=== PATIENT | male | born 1970 | race Caucasian/White ===

== ENCOUNTER 2022-05-29 01:39 | Emergency (ER) | payer SELFPAY ==
[2022-05-29 01:44] VITALS: BP 124/78; PULSE 84; RESP 18; TEMP 36.4; O2SAT 99; BMI 23.1
[2022-05-29 01:52] VITALS: TEMP 36.4
[2022-05-29] MEDS: KETOROLAC 30 MG/ML inj IVP (01:52)
[2022-05-29] MEDS: HYDROmorphone 0.5 mg/0.5 ml inj IVP (01:59)
[2022-05-29 02:00] VITALS: O2SAT 95
[2022-05-29 02:01] LABS: Lactate* 1.5 mmol/L (0.5-1.9)
--- NOTE | 2022-05-29 02:01 | ED_ITS ---
HPI - Abdominal Pain General Date Seen: 05/29/22 Chief Complaint: Flank Pain Stated Complaint: Left flank pain, chills, vomiting Time Seen by Provider: 05/29/22 01:45 Source: patient and family Mode of arrival: ambulatory Limitations: no limitations History of Present Illness HPI narrative: Patient is a very nice 51-year-old gentleman who presents here with his with a history of acute onset at 10:00 p.m. of left flank discomfort with radiation to his suprapubic area. Vomiting, nausea, and pain in spasmodic waves. Also some chills associated with this, he has not noted any blood in his urine, he has had no diarrhea, heme thinks this is similar to episodes approximately 4 years ago when he had kidney stones. MD elicited complaint: abdominal pain and flank pain Pertinent past history: kidney stones Onset (ago): hour(s) (4) Location: LUQ and suprapubic Severity: severe Migration to: no migration Exacerbating factors: vomiting and movement Relieving factors: medication Associated symptoms: nausea, vomiting and chills Treatments prior to arrival: other (Tried to take 2 oxycodone but vomited this up) Related Data Home Medications Medication Instructions Recorded Confirmed No Known Home Medications 05/29/22 05/29/22 Allergies Allergy/AdvReac Type Severity Reaction Status Date / Time No Known Drug Allergies Allergy Verified 05/29/22 03:28 Review of Systems Status of ROS Reports: 10 or more systems reviewed and unremarkable except as noted in History and below [facility] Medical History (Updated 05/29/22 @ 03:39 by Kodak Dorado MD) Hernia Kidney stones Surgical History (Updated 05/29/22 @ 02:22 by Kelvin Calle RN) History of arthrodesis History of arthroscopy of right shoulder History of bilateral inguinal hernia repair History of repair of anterior cruciate ligament of left knee History of umbilical hernia repair History of vasectomy Status post ORIF of fracture of ankle Social History Smoking Status: Never smoker Do you use any of these nicotine containing products: None Second hand tobacco smoke exposure: Yes How often do you have a drink containing alcohol: never How often do you have six or more drinks on one occasion: Never AUDIT-C Alcohol total score: 0 Non-prescribed substance use: denies use Exam Narrative: Exam Narrative: Patient initially was in quite a bit of distress, bent over, retching, we did give him medications and by the time I see him he is much more comfortable laying in the bed. Mild left-sided flank discomfort, scaphoid abdomen, with no really tenderness on palpation. There is no organomegaly noted. He has normal testicles, no hernias, chest is good air entry heart sounds are normal, head eyes ears nose and throat reveal no acute abnormalities. No CVA tenderness is noted. Const: Vital Signs, click to edit/add: Vital Signs - 24 hr 05/29/22 01:44 05/29/22 01:52 05/29/22 02:40 Temperature 97.6 F 97.6 F 97.6 F Pulse Rate [Right Pulse Oximeter] 84 Respiratory Rate 18 Blood Pressure [Ri ght Upper Arm] 124/78 Pulse Oximetry 99 Oxygen Delivery Me thod Room Air Oxygen Flow Rate 05/29/22 02:00 Temperature Pulse Rate [Right Pulse Oximeter] Respiratory Rate Blood Pressure [Ri ght Upper Arm] Pulse Oximetry 95 Oxygen Delivery Me thod Nasal Cannula Oxygen Flow Rate 2 Documenting provider has reviewed patient's vital signs: yes Course Course Hospital Course: Patient's pain markedly improved, it is currently 0/10. He is resting comfortably. His CT scan does show left-sided stone, at the UVJ. There are some bacteria and white cells in his urine, so I think it would be a good idea, for him to take an antibiotic. I think it is likely not going to grow anything. But we should err on the side of safety here. Vital Signs Vital signs: Initial Vital Signs Temperature 97.6 F 05/29/22 01:44 Temperature Source Temporal Artery Scan 05/29/22 01:44 Pulse Rate 84 05/29/22 01:44 Respiratory Rate 18 05/29/22 01:44 Blood Pressure 124/78 05/29/22 01:44 Blood Pressure Mean 93 05/29/22 01:44 Blood Pressure Position Sitting 05/29/22 01:44 Pulse Oximetry 99 05/29/22 01:44 Oxygen Delivery Method 05/29/22 01:44 Vital Signs Temperature 97.6 F 05/29/22 01:44 Pulse Rate 84 05/29/22 01:44 Respiratory Rate 18 05/29/22 01:44 Blood Pressure 124/78 05/29/22 01:44 Pulse Oximetry 99 05/29/22 01:44 Oxygen Delivery Method 05/29/22 01:44 Temperature 97.6 F 05/29/22 02:40 Pulse Rate 84 05/29/22 01:44 Respiratory Rate 18 05/29/22 01:44 Blood Pressure 124/78 05/29/22 01:44 Pulse Oximetry 95 05/29/22 02:00 Oxygen Delivery Method 05/29/22 02:00 Oxygen Flow Rate 2 05/29/22 02:00 MDM - Abdominal Pain MDM Narrative Medical decision making narrative: During this evaluation of this patient I considered multiple differential diagnosis is which included the life-threatening such as appendicitis, aortic aneurysm, mesenteric ischemia, bowel perforation, volvulus, and bowel obstruction. Other differential diagnosis is include but are not limited to cholecystitis, pancreatitis, hepatitis, gastritis, GERD, diverticulitis, peptic ulcer disease, pyelonephritis/UTI, renal colic/stone, testicular torsion as well as other acute scrotal processes, inflammatory bowel disease, as well as other etiologies Medical Records Attestation: I reviewed the patient's medical records. Medical records narrative: I reviewed his medical records from [facility] everywhere, multiple surgeries are noted at [facility] Orthopedics, but he does have history of kidney stones as noted in his chart from Urology. Lab Data Labs: Lab Results 05/29/22 05/29/22 05/29/22 Range/Units 01:45 01:45 01:45 WBC 9.12 (4.50-11.00) K/uL RBC 5.14 (4.30-5.90) m/uL Hgb 15.6 (13.5-17.5) gm/dL Hct 45.6 (37.0-53.0) % MCV 89 (80-100) fL MCH 30 (26-34) pg MCHC 34 (32-36) gm/dL RDW Coeff of Linda 12.0 (11.5-15.5) % Plt Count 250 (140-440) K/uL Neut % (Auto) 70.1 (42.0-72.0) % Lymph % (Auto) 21.4 (20-44) % Weston % (Auto) 6.7 (0.0-11.0) % Eos % (Auto) 1.3 (0.0-7.0) % Baso % (Auto) 0.4 (0.0-3.0) % Neut # (Auto) 6.39 (1.7-7.0) K/uL Lymph # (Auto) 1.95 (0.90-2.90) K/uL Weston # (Auto) 0.60 (0.00-0.90) K/UL Eos # (Auto) 0.12 (0.00-0.50) K/uL Baso # (Auto) 0.04 (0.00-0.30) K/uL Abs Immat Gran (auto) 0.01 (0.00-0.30) K/uL Sodium 139 (135-149) mmol/L Potassium 4.2 (3.6-5.1) mmol/L Chloride 104 (96-114) mmol/L Carbon Dioxide 26 (20-32) mmol/L BUN 22 (7-30) mg/dL Creatinine 1.2 (0.5-1.5) mg/dL Estimated Creat Clear 83.16 Estimated GFR 73 ml/min Glucose 124 H (60-115) mg/dL Lactate 1.5 (0.5-1.9) mmol/L Calcium 9.1 (8.4-10.6) mg/dL Total Bilirubin 0.5 (0.1-1.5) mg/dL Direct Bilirubin 0.3 (0.0-0.5) mg/dL AST 38 H (12-35) U/L ALT 24 (4-50) U/L Alkaline Phosphatase 82 (40-150) U/L Total Protein 7.4 (6.0-8.3) g/dL Albumin 4.4 (3.3-5.0) g/dL Lipase 74 (23-300) U/L Urine Color (Yellow) Urine Appearance (Clear) Urine pH (5.0-8.5) Ur Specific [place] (1.000-1.030) Urine Protein (Negative) Urine Glucose (UA) (Negative) Urine Ketones (Negative) Urine Blood (Negative) Urine Nitrite (Negative) Urine Bilirubin (Negative) Urine Urobilinogen (0.2-1.0) Ur Leukocyte Esterase (Negative) Urine RBC (0-2) Urine WBC (0-5) Ur Squamous Epith Cells (None-Few) Urine Bacteria (None) Urine Mucus (None) 08/29/22 Range/Units 03:00 WBC (4.50-11.00) K/uL RBC (4.30-5.90) m/uL Hgb (13.5-17.5) gm/dL Hct (37.0-53.0) % MCV (80-100) fL MCH (26-34) pg MCHC (32-36) gm/dL RDW Coeff of Linda (11.5-15.5) % Plt Count (140-440) K/uL Neut % (Auto) (42.0-72.0) % Lymph % (Auto) (20-44) % Weston % (Auto) (0.0-11.0) % Eos % (Auto) (0.0-7.0) % Baso % (Auto) (0.0-3.0) % Neut # (Auto) (1.7-7.0) K/uL Lymph # (Auto) (0.90-2.90) K/uL Weston # (Auto) (0.00-0.90) K/UL Eos # (Auto) (0.00-0.50) K/uL Baso # (Auto) (0.00-0.30) K/uL Abs Immat Gran (auto) (0.00-0.30) K/uL Sodium (135-149) mmol/L Potassium (3.6-5.1) mmol/L Chloride (96-114) mmol/L Carbon Dioxide (20-32) mmol/L BUN (7-30) mg/dL Creatinine (0.5-1.5) mg/dL Estimated Creat Clear Estimated GFR ml/min Glucose (60-115) mg/dL Lactate (0.5-1.9) mmol/L Calcium (8.4-10.6) mg/dL Total Bilirubin (0.1-1.5) mg/dL Direct Bilirubin (0.0-0.5) mg/dL AST (12-35) U/L ALT (4-50) U/L Alkaline Phosphatase (40-150) U/L Total Protein (6.0-8.3) g/dL Albumin (3.3-5.0) g/dL Lipase (23-300) U/L Urine Color Yellow (Yellow) Urine Appearance Cloudy A (Clear) Urine pH 6.0 (5.0-8.5) Ur Specific [place] >= 1.030 (1.000-1.030) Urine Protein 2+ A (Negative) Urine Glucose (UA) Negative (Negative) Urine Ketones Trace A (Negative) Urine Blood 3+ A (Negative) Urine Nitrite Negative (Negative) Urine Bilirubin 1+ A (Negative) Urine Urobilinogen 0.2 (0.2-1.0) Ur Leukocyte Esterase Negative (Negative) Urine RBC 0-2 (0-2) Urine WBC 10-25 A (0-5) Ur Squamous Epith Cells None (None-Few) Urine Bacteria Moderate A (None) Urine Mucus Many A (None) Imaging Data CT scan - abdomen: Attestation: I have reviewed the pertinent imaging results. My impression: Left-sided hydronephrosis with 7 mm stone at the UVJ Radiologist's impression: Patient: ANITA MARTIN Facility:?[facility] Patient ID:?[id number] Site Patient ID:?[id number]. Site :?[id number] Study:?CT Abdomen/Pelvis without contrast stone study-05/29/2022 2:52:54 AM Ordering Physician:Eduar Candelario Final Report: INDICATION: Left-sided abdominal pain. COMPARISON: CT of the abdomen and pelvis without contrast from 02/24/2010 TECHNIQUE: CT examination of the abdomen and pelvis was performed without contrast enhancement using 3 mm thick axial sections from the lung bases through the pubic symphysis. Oral contrast was not administered. Please note that all CT scans at this facility use dose modulation, iterative reconstruction, and/or weight-based dosing when appropriate to reduce radiation dose to as low as reasonably achievable. FINDINGS: There is new moderate left hydronephrosis and moderate left hydroureter extending to a new 7 millimeter UVJ calculus. There is new mild nonobstructive left nephrolithiasis, with 2 calculi in the lower pole measuring 4 and 5 millimeters. On the right, there is no sign of urinary system obstruction or calculi. The liver, pancreas, and adrenals are normal in appearance. Incidental note is made of stable small calcified splenic granulomas in the otherwise normal spleen. The gallbladder is normal in appearance. The abdominal aorta is normal in caliber with no sign of dilatation. There is no sign of retroperitoneal mass or adenopathy. The stomach, loops of small bowel, and colon in the abdomen are normal in appearance. In the pelvis, the appendix is nonvisualized, but there is no sign of an inflammatory process in the area of the appendix. There is new moderate sigmoid diverticulosis without evidence of diverticulitis. The loops of small bowel and rectum in the pelvis are otherwise normal in appearance. The prostate has increased in size and is now moderately enlarged. It is otherwise normal in appearance. The urinary bladder is now seen to contain a small 2 millimeter calculus posteriorly to the left. There is no sign of pelvic or inguinal mass or adenopathy. There is no sign of free air or free fluid in the abdomen or pelvis. The lung bases are clear. There is stable mild anterior wedging of the T11-L1 vertebral bodies. There is minimal posterior subluxation of L1 on L2. There is stable prominent L4-5 disc degenerative disease. There is stable mild scoliosis of the lumbar spine convex towards the left. IMPRESSION: New moderate left hydronephrosis and moderate left hydroureter extending to a [address] of the abdomen shows new mild nonobstructive left nephrolithiasis. CT of the pelvis shows new moderate sigmoid diverticulosis with no sign of diverticulitis. Please note that all CT scans at this facility use dose modulation, iterative reconstruction, and/or weight-based dosing when appropriate to reduce radiation dose to as low as reasonably achievable. Dictated by Rayray Montalvo MD @ 05/29/2022 3:31:39 AM (Electronic Signature) Discharge Plan Discharge Clinical Impression: Increased nausea and vomiting, Renal colic on left side, Acute UTI (urinary tract infection) Patient Disposition: Home w/ Parent or Adult Condition: Improved Instructions: Renal Colic (ED), Acute Abdominal Pain (ED), Urinary Tract Infection in Men (ED) Additional Instructions: Home rest fluids, ibuprofen 800 mg p.o. t.i.d. for the next 3 days. Percocet for breakthrough pain, Zofran for nausea vomiting, I think he will pass this sto ne, without an issue. As it has already gone through 2 of the 3 [place] so to speak. He does have potential another visit to the ER with a stone in his left kidney, he may want a follow-up with urology get their opinion on this. Increasing fevers chills sweats or vomiting he should follow up at once. Follow Up/Referrals: Juaquin Bryson MD [Primary Care Provider] - Stand Alone Forms: [employer] Info Instructions
[2022-05-29 02:04] LABS: Basophils Absolute Auto 0.04 K/uL (0.00-0.30); Basophils Percent Auto 0.4 % (0.0-3.0); Eosinophils Absolute Auto 0.12 K/uL (0.00-0.50); Eosinophils Percent Auto 1.3 % (0.0-7.0); Hematocrit 45.6 % (37.0-53.0); Hemoglobin* 15.6 gm/dL (13.5-17.5); Immature Granulocytes Abs Auto 0.01 K/uL (0.00-0.30); Lymphocytes Absolute Auto 1.95 K/uL (0.90-2.90); Lymphocytes Percent Auto 21.4 % (20-44); Mean Corpuscular HGB Conc 34 gm/dL (32-36); Mean Corpuscular Hemoglobin 30 pg (26-34); Mean Corpuscular Volume 89 fL (80-100); Monocytes Percent Auto 6.7 % (0.0-11.0); Neutrophils Absolute Auto 6.39 K/uL (1.7-7.0); Neutrophils Percent Auto 70.1 % (42.0-72.0); Platelet Count* 250 K/uL (140-440); Red Blood Count 5.14 m/uL (4.30-5.90); Slide Review Reflex No; White Blood Count* 9.12 K/uL (4.50-11.00)
[2022-05-29] MEDS: LORazepam 2 MG/ML inj 0.5 MG IVP (02:10)
[2022-05-29] MEDS: ONDANSETRON 2 MG/ML inj 4 MG IVP (02:12)
[2022-05-29 02:15] LABS: Albumin* 4.4 g/dL (3.3-5.0)
[2022-05-29 02:16] LABS: Chloride* 104 mmol/L (96-114); Potassium* 4.2 mmol/L (3.6-5.1); Sodium* 139 mmol/L (135-149)
--- NOTE | 2022-05-29 02:16 | CRLHL7_ITS ---
For Patients: As a result of the 21st Century Cures Act, medical imaging exams and procedure reports are released immediately into your electronic medical record. You may view this report before your referring provider. If you have questions, please contact your health care provider. INDICATION: Left-sided abdominal pain. COMPARISON: CT of the abdomen and pelvis without contrast from 02/24/2010 TECHNIQUE: CT examination of the abdomen and pelvis was performed without contrast enhancement using 3 mm thick axial sections from the lung bases through the pubic symphysis. Oral contrast was not administered. Please note that all CT scans at this facility use dose modulation, iterative reconstruction, and/or weight-based dosing when appropriate to reduce radiation dose to as low as reasonably achievable. FINDINGS: There is new moderate left hydronephrosis and moderate left hydroureter extending to a new 7 millimeter UVJ calculus. There is new mild nonobstructive left nephrolithiasis, with 2 calculi in the lower pole measuring 4 and 5 millimeters. On the right, there is no sign of urinary system obstruction or calculi. The liver, pancreas, and adrenals are normal in appearance. Incidental note is made of stable small calcified splenic granulomas in the otherwise normal spleen. The gallbladder is normal in appearance. The abdominal aorta is normal in caliber with no sign of dilatation. There is no sign of retroperitoneal mass or adenopathy. The stomach, loops of small bowel, and colon in the abdomen are normal in appearance. In the pelvis, the appendix is nonvisualized, but there is no sign of an inflammatory process in the area of the appendix. There is new moderate sigmoid diverticulosis without evidence of diverticulitis. The loops of small bowel and rectum in the pelvis are otherwise normal in appearance. The prostate has increased in size and is now moderately enlarged. It is otherwise normal in appearance. The urinary bladder is now seen to contain a small 2 millimeter calculus posteriorly to the left. There is no sign of pelvic or inguinal mass or adenopathy. There is no sign of free air or free fluid in the abdomen or pelvis. The lung bases are clear. There is stable mild anterior wedging of the T11-L1 vertebral bodies. There is minimal posterior subluxation of L1 on L2. There is stable prominent L4-5 disc degenerative disease. There is stable mild scoliosis of the lumbar spine convex towards the left. IMPRESSION: New moderate left hydronephrosis and moderate left hydroureter extending to a [address] of the abdomen shows new mild nonobstructive left nephrolithiasis. CT of the pelvis shows new moderate sigmoid diverticulosis with no sign of diverticulitis. Please note that all CT scans at this facility use dose modulation, iterative reconstruction, and/or weight-based dosing when appropriate to reduce radiation dose to as low as reasonably achievable. Dictated by Rayray Montalvo MD @ 05/29/2022 3:31:39 AM (Electronically Signed)
[2022-05-29 02:18] LABS: Aspartate Amino Transferase* 38 U/L (12-35); Bilirubin Direct* 0.3 mg/dL (0.0-0.5); Bilirubin Total* 0.5 mg/dL (0.1-1.5); Blood Urea Nitrogen* 22 mg/dL (7-30); Carbon Dioxide* 26 mmol/L (20-32); Creatinine* 1.2 mg/dL (0.5-1.5); Est. Creatinine Clearance* 83.16; Estimated Glomerular Filt Rate 73 ml/min; Total Protein* 7.4 g/dL (6.0-8.3)
[2022-05-29 02:19] LABS: Alanine Aminotransferase* 24 U/L (4-50); Alkaline Phosphatase* 82 U/L (40-150); Calcium* 9.1 mg/dL (8.4-10.6); Glucose* 124 mg/dL (60-115); Lipase* 74 U/L (23-300)
[2022-05-29 02:40] VITALS: TEMP 36.4
[2022-05-29 03:16] LABS: Appearance Urine Cloudy (Clear); Bilirubin Urine 1+ (Negative); Blood Urine 3+ (Negative); Color Urine Yellow (Yellow); Glucose Urine Negative (Negative); Ketones Urine Trace (Negative); Leukocyte Esterase Urine Negative (Negative); Nitrite Urine Negative (Negative); Protein Urine 2+ (Negative); Specific Gravity Urine >= 1.030 (1.000-1.030); Urobilinogen Urine 0.2 (0.2-1.0)
[2022-05-29 03:25] LABS: RBC Urine 0-2 (0-2)
[2022-05-29 03:26] LABS: Bacteria Urine Moderate; Mucus Urine Many
[2022-05-29 03:52] VITALS: BP 115/78; PULSE 79; RESP 18; TEMP 36.4; O2SAT 95
[2022-05-29 03:55] VITALS: BP 115/78; PULSE 68; RESP 16; TEMP 36.4
== END 2022-05-29 03:56 | disposition home or self-care (01) ==
PROVIDERS: Emergency Provider Family Medicine; PCP Family Medicine
DX: R11.2 Nausea with vomiting, unspecified (principal); N23 Unspecified renal colic; N39.0 Urinary tract infection, site not specified
CPT/HCPCS: 36415; 74176; 80048; 80076; 81001; 83605; 83690; 85025; 87086; 96374; 96375; 99284; 99285; J1170; J1885; J2060; J2405

== ENCOUNTER 2025-01-09 18:06 | Emergency (ER) | payer OTHER, SELFPAY ==
--- OUTSIDE RECORDS SUMMARY | 2025-01-09 18:08 | XMS_ITS | Clinical Summary ---
Author Organization [facility] Address [address] [address] Care Team Providers Care Linoleum Layer Apprentice Name Role Phone Unassigned, Provider Primary Care Provider Unava ilable Source Comments You are receiving this document as you are listed as the primary care provider,follow-up provider, or the patient has been referred to you for consultation.This is in compliance with the Medicare and[facility] EHR Incentive Program,which states Providers who transition their patient to another setting of careor provider of care or refers their patient to another provider of care shouldprovide summary care record for each transition of care or referral. [facility] Allergies No known active allergies Medications cholecalciferol (VITAMIN D3) 1000 UNITS tablet Take 1,000 Units by mouth daily. Active omega-3 fatty acids (MAXEPA,FISHOIL) 1000 MG capsule Take 2 g by mouth daily. Active Multiple Vitamins-Iron (MULTIVITAMIN/IR ON OR) Active Probiotic Product (SUPER PROBIOTIC OR) Active diphenhydrAMINE- APAP, sleep, (TYLENOL PM EXTRA STRENGTH OR) Active Glucosamine-Kevin droit-Vit C-Mn (GLUCOSAMINE 1500 COMPLEX OR) Act haider Active Problems No known active problems Social History Tobacco Use Types Packs/Day Years Used Date Smoking Tobacco: Never Smokeless Tobacco: Never Alcohol Use Standard Drinks/Week Comments Yes 0 (1 standard drink = 0.6 oz pur e alcohol) occasional Sex and Gender Information Value Date Recorded Sex Assigned at Not on file Legal Sex Male 7:05 AM CDT Gender Identity Not on file Sexual Orientation Not on file Last Filed Vital Signs Vital Sign Reading Time Taken Comments Blood Pressure 135/86 10/22/2021 3:29 PM RUSSET REPAIRER Pulse 62 10/22/2021 3:29 PM RUSSET REPAIRER Temperature 36.6 C (97.9 F) 10/22/2021 3:29 PM RUSSET REPAIRER Respiratory Rate 18 10/22/2021 3:29 PM RUSSET REPAIRER Oxygen Saturation 100% 10/22/2021 3:29 PM RUSSET REPAIRER Inhaled Oxygen Concentration - - Weight 90.7 kg (200 lb) 09/22/2019 12:50 PM RUSSET REPAIRER Height 198.1 cm (6' 6) 09/22/2019 12:50 PM RUSSET REPAIRER Body Mass Index 23.11 09/22/2019 12:50 PM RUSSET REPAIRER Plan of Treatment Health Maintenance Due Date Last Done Comments Colon Cancer Screening Plan Due 1970 Hep C Screening (Preventive Services) 1970 PSA Screening Discussion 1969 IPV (Polio) (2 of 3 - 4-dose series) 03/31/1975 03/03/1975 HIV Screening (Preventive Services) 1985 Adult Preventive Visit 1987 HepB (1) 1988 DTaP/Tdap/Td (1 - Tdap) 05/07/1991 05/06/1991 Cholesterol 2004 Pneumococcal 50+ Yrs (1 of 1 - PCV) 2019 Zoster/Shingles (1 of 2) 2019 COVID-19 Vaccine (1 - 2023-2 5 season) 2024 Influenza (#1) 2024 HepA Aged Out No longer eligi ble based on patient's age to complete this topic Hib Aged Out No longer eligi ble based on patient's age to complete this topic MCV4 Aged Out No longer eligi ble based on patient's age to complete this topic Meningococcal B Aged Out No longer el igible based on patient's age to complete this topic Medical Devices Implanted Type Area Charge Accounts Audit Clerk Device Identifier Shelf Expiration Date Model / Serial / Lot Sut Hermitage Corkscrew 5.5mm W2# - [id number] Implanted:Qty: 1 on 06/30/2019 by Luis Cartwright MD at [facility] Left: SHOULDER [employer] 02/28/2021 [id number] T / 0 / [id number] Sut Hermitage Corkscrew 5.5mm W2# - [id number] Implanted:Qty: 1 on 06/30/2019 by Luis Cartwright MD at [facility] Left: SHOULDER [employer] 11/28/2020 [id number] T / 0 / [id number] Hermitage Bio Swivel Lk 5.5x19.1 - [id number] Implanted:Qty: 1 on 06/30/2019 by Luis Cartwright MD at [facility] Left: SHOULDER [employer] 12/29/2020 [id number] C / 0 / [id number] Insurance [facility] Advance Directives * Full Code (Latest Code Status on File) Date Activated Date Inactivated Comments 09/22/2019 2:18 PM 09/22/2019 5:52 PM Full code in effect for 30 days * Full Code Date Activated Date Inactivated Comments 03/07/2017 12:31 PM 03/07/2017 5:31 PM Full code in effect for 30 days Care Teams Linoleum Layer Apprentice Relationship Specialty Start Date End Date Unassigned, Provider [address] [place] [address] PCP - General 09/01/00
--- OUTSIDE RECORDS SUMMARY | 2025-01-09 18:08 | XMS_ITS | Clinical Summary ---
Author Organization [facility] Address [address] [place] [address]. [place] [address] Care Team Providers Care Horticulture Teacher Name Role Phone Votel Juaquin Yang Primary Care Provider [phone] Allergies No known active allergies Medications cholecalciferol (VITAMIN D-[address]) 1000 units TABS Take 1,000 Units by mouth Active omega 3 1000 MG CAPS Take 2 g by mouth Active Active Problems Problem Noted Date Diagnosed Date Neck abscess 02/28/2018 Chest pain Family History Medical History Relation Comments Heart Disease Father mi age [address] and [address] ent placed Relation Status Comments Father Alive Mother Alive Social History Tobacco Use Types Packs/Day Years Used Date Smoking Tobacco: Never Smokeless Tobacco: Never Alcohol Use Standard Drinks/Week Comments Yes 0 (1 standard drink = 0.6 oz pur e alcohol) 2 beers 3 nights per week PHQ-2 Answer Date Recorded PHQ-2 Score 0 11/12/2018 Adolescent Education Answer Date Record ed Getting School Help Needed Not on file 07/08 Sex and Gender Information Value Date Recorded Sex Assigned at Not on file Legal Sex Male 3:45 AM DOLL WIG MAKER ROOTED HAIR Gender Identity Not on file Sexual Orientation Not on file Last Filed Vital Signs Vital Sign Reading Time Taken Comments Blood Pressure 118/62 11/12/2018 1:53 PM DOLL WIG MAKER ROOTED HAIR Pulse 76 11/12/2018 1:53 PM DOLL WIG MAKER ROOTED HAIR Temperature 36.8 C (98.3 F) 10/24/2018 10:52 AM DOLL WIG MAKER ROOTED HAIR Respiratory Rate 26 10/24/2018 10:52 AM DOLL WIG MAKER ROOTED HAIR Oxygen Saturation 99% 10/24/2018 12:45 PM DOLL WIG MAKER ROOTED HAIR Inhaled Oxygen Concentration - - Weight 90.7 kg (200 lb) 11/12/2018 1:53 PM DOLL WIG MAKER ROOTED HAIR Height 193 cm (6' 4) 11/12/2018 1:53 PM DOLL WIG MAKER ROOTED HAIR Body Mass Index 24.34 11/12/2018 1:53 PM DOLL WIG MAKER ROOTED HAIR Plan of Treatment Not on file Medical Devices Implanted Type Area Fish Hatchery Supervisor Device Identifier Shelf Expiration Date Model / Serial / Lot Mesh Hernia Physio [id number] Oval [id number] Implanted:Qty: 1 on 07/12/2012 by Yoan Hamilton MD at [facility] Left: Groin 02/28/2014 [id number] / / [id number] Mesh Hernia Physio [id number] Oval [id number] Implanted:Qty: 1 on 07/12/2012 by Yoan Hamilton MD at [facility] Right: Groin 02/28/2014 [id number] / / [id number] Advance Directives For more information, please contact: [phone] Documents on File Type Date Recorded Patient Children'S Choir Director Expl anation Advance Directives and Living Will 07/23/2012 12:08 PM HEALTH CARE DIRECTIVE-10/23/2004 Advance Directives and Living Will 07/23/2012 12:08 PM VALIDATION OF AD-10/23/2004 * Full Code (Latest Code Status on File) Date Activated Date Inactivated Comments 03/01/2018 8:32 AM 10/24/2018 10:46 AM * Full Code Date Activated Date Inactivated Comments 02/28/2018 3:49 PM 03/01/2018 8:32 AM Care Teams Horticulture Teacher Relationship Specialty Start Date End Date VotelJuaquin: [id number] PCP - General 06/17/12
--- OUTSIDE RECORDS SUMMARY | 2025-01-09 18:08 | XMS_ITS | Encounter Summary ---
[facility] Address [address] [place] [id number] Care Team Providers Care Air Conditioning Service Technician Name Role Phone Unassigned, Provider Primary Care Provider Unava ilable Encounter Details Date Type Department Care Team (Late st Contact Info) Description 08/25/2024 Notes/Orders [facility] [address] [place] [id number] Luis Cartwright MD [address] [place] [id number] Social History Tobacco Use Types Packs/Day Years Used Date Smoking Tobacco: Never Smokeless Tobacco: Never Alcohol Use Standard Drinks/Week Comments Yes 0 (1 standard drink = 0.6 oz pur e alcohol) occasional Sex and Gender Information Value Date Recorded Sex Assigned at Not on file Legal Sex Male 7:05 AM CDT Gender Identity Not on file Sexual Orientation Not on file documented as of this encounter Plan of Treatment Not on file documented as of this encounter Visit Diagnoses Not on filedocumented in this encounter Care Teams Air Conditioning Service Technician Relationship Specialty Start Date End Date Unassigned, Provider [address] [place] [address] PCP - General 09/01/00 documented as of this encounter
[2025-01-09 18:09] VITALS: BP 134/88; PULSE 64; RESP 16; TEMP 36.4; O2SAT 98; BMI 23.2
--- OUTSIDE RECORDS SUMMARY | 2025-01-09 18:09 | XMS_ITS | Clinical Summary ---
Author Organization [employer] [facility] Address [address] [place] [address] Care Team Providers Care Shuttle Filler Name Role Phone Votel, Juaquin Downing MD Primary Care Provider + Allergies No known active allergies Medications No known medications Active Problems No known active problems Family History Medical History Relation Name Comments Heart Disease Father Stent at age 6 5 Cancer-breast Maternal Grandmother Relation Name Status Comments Father Alive Maternal Grandmother Mother Alive Social History Tobacco Use Types Packs/Day Years Used Date Smoking Tobacco: Never Smokeless Tobacco: Never Alcohol Use Standard Drinks/Week Comments Yes 0 (1 standard drink = 0.6 oz pur e alcohol) 2 beers 3 nights per week Sex and Gender Information Value Date Recorded Sex Assigned at Not on file Legal Sex Male 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[employer] Gender Identity Not on file Sexual Orientation Not on file 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 Not on file Not on file Obstetrics History Last Filed Vital Signs Vital Sign Reading Time Taken Comments Blood Pressure 112/65 06/27/2012 11:31 AM CDT Pulse 58 06/27/2012 11:31 AM CDT Temperature 36.3 C (97.4 F) 06/27/2012 11:31 AM CDT Respiratory Rate - - Oxygen Saturation 98% 06/27/2012 11:31 AM CDT Inhaled Oxygen Concentration - - Weight 90.7 kg (200 lb) 06/27/2012 11:31 AM CDT Height 194.3 cm (6' 4.5) 06/27/2012 11:31 AM CD T Body Mass Index 24.03 06/27/2012 11:31 AM CDT Plan of Treatment Health Maintenance Due Date Last Done Comments Tdap 1980 Depression screening for age 12+ 1981 HIV for age 15-65 1984 BMI (ht and wt on same day) for age 18+ 1987 Tetanus booster 1989 Lipids for age 45-75 2014 Pneumococcal series for age 50+ (1 of 1 - PCV) 2019 Zoster (shingles) series for age 50+ (1 of 2) 2019 Colonoscopy through age 75 01/28/2024 01/27/2014, COVID-19 vaccine series ( season) 2024 Influenza Vaccine (Season Ended) 2025 Hepatitis C screening for age 18-79 Completed 03/29, 08/06/2003 Procedures Procedure Name Priority Date/Time Associated Diagnosis Comments SCAN-COLONOSCOPY 01/27/2014 12:0 0 AM CDT ANTI HCV Routine 03/29/2007 1:21 PM CDT Screening Othr Specific Viral Dis from Last 3 Months or Most Recently Relevant to Health Maintenance Results * SCAN-COLONOSCOPY (01/27/2014 12:00 AM CDT) us Scanner OTHER Final Result * ANTI HCV (03/29/2007 1:21 PM CDT) ANTI HCV Non-reacti ve [facility] Blood specimen (specimen) BLOOD SPECIMEN / Unknown 03/29/2007 1:21 PM CDT 03/29/2007 1:15 PM CDT us Woo Oneill MD SEND OUTS Final Re sult [facility] INTERNAL ZIP [phone] [id number] from Last 3 Months or Most Recently Relevant to Health Maintenance Care Teams Shuttle Filler Relationship Specialty Start Date End Date Votel, Juaquin Downing MD [address] [place] [address] [facility] - General 06/23/06
--- OUTSIDE RECORDS SUMMARY | 2025-01-09 18:09 | XMS_ITS | Data Portability ---
Author Organization [facility] Benn[facility] gy, [facility] Address [address] [place] [address] Care Team Providers Care Automatic Presser Name Role Phone KASEYTETAYLA Lewis Primary Care Provider Assessment No assessment recorded. Plan of Treatment Reminders Order Date Submit Date Provider Last Modified By Organization Details Last Modified Time Details Appointments ESTABLI SHED 10 2024 09:50A Nancy reid MD Not available Not available Not available Lab None recorde d. Referral None recorde d. Procedures bladder scan (PROC) 2023 024 kenia Bruno_michelleal e, [address], [address], [place], [address], Ph 08/12/2024 17:55:41 bladder scan (PROC) 2023 024 kenia Sharpal e, [facility], [place], [address], Ph 07/07/2024 16:12:27 Surgeries None recorde d. Imaging None recorde d. Medication Orders cephale patricia 500 mg capsule 2023 024 [email or web address] [facility][id number], [address], [address], 09/04/2024 13:54:21 finaste ride 5 mg tablet 2023 024 [id number], [address], [address], 08/21/2024 10:22:50 tamsulo sin 0.4 mg capsule 2023 024 [facility][id number], [address], [address], 07/07/2024 16:12:29 allopur inol 200 mg tablet 2023 024 [id number], [address], [place], [place], [id number], 07/07/2024 15:53:01 Patient TargetsNo targets recorded. Patient Instructions Encounter Date Encounter Id Patient Instructions Last Modified By Organization Details Last Modified Time 12/26/2022 [id number] kidney stones referral ([place]) CT scan from 05/29/2022 reviewed and interpreted from [place]: 7 mm left UVJ stone with moderate left hydronephrosis 2 calculi in the lower pole the left kidney, 4 and 5 mm respectively 12/26/2022 nephrolithiasis Review and interpretation of labs and 24-hour urine No abnormalities of laboratory values, normal calcium, parathyroid hormone, uric acid 24-hour urine with several findings: Good urine output at two-point at 2.69 L High urinary calcium, 435 High urinary oxalate severe hyperuricosuria Discussion of findings, will need to lower consumption of foods, vitamins with calcium excess discussion of hctz therapy, with pot citrate lower oxalate diet lowering of protein consumption, discussion of allopurinol 100 mg po qd discussion of follow up with Nephrology has very high protein and takes lot of supplements will grossly affect his diet will follow up in 6 months with CARINA aquino Not available 12/26/2022 14:54:11 10/23/2023 [id number] Nephrolithiasis Review and interpretation of 24-hour urine from 08/28/2023: Urine volume 1.8 L per 24 hours Discussion of importance of hydration, 80 to 90 ounces of water per day Urinary calcium high at 430 with normal being less than 250 mg over 24 hours Discussion of lower calcium diet Very high amounts of uric acid seen in the urine at 1062,normal < 800 Sodium continues at high normal levels. November 2022 with parathyroid hormone intact at 31.3, normal calcium 9.5 Review of previous 24-hour urine studies from 12/14/2022 Higher urinary output at 2.69, still high urinary calcium and severe hyperuricosuria He substantially reduced his Vit D and protein intake Discussion of addition of allopurinol 150 mg daily Discussion of follow-up with nephrology for further advice will try Allopurinol 200 mg daily and will follow up with Nephrology for further advise Takes a lot of supplements, and I suspect it may be part of his problem He may bring his supplements with him to the nephrology consultation. In addition, he notes at time recently when he had some difficulty with urination while in [place] but notes to fairly heavy alcohol consumption at that time. He needed to seek out medical facilities while on [place] and had a catheter placed with 1000 cc residual. We talked about follow-up in 3 to 4 months first with a nurse visit, UroCuff (full bladder), then with me 1 week later with a TRUS volume and cystoscopy. The patient notes having normal PSA values. will also follow up with Nephrology for further advice kenia Not available 10/23/2023 17:30:35 07/07/2024 [id number] Nephrolithiasis, BPH with Obstruction Review and interpretation of 24-hour urine from 08/28/2023: Urine volume 1.8 L per 24 hours Discussion of importance of hydration, 80 to 90 ounces of water per day Urinary calcium high at 430 with normal being less than 250 mg over 24 hours Discussion of lower calcium diet Very high amounts of uric acid seen in the urine at 1062,normal < 800 Sodium continues at high normal levels. November 2022 with parathyroid hormone intact at 31.3, normal calcium 9.5 Review of previous 24-hour urine studies from 12/14/2022 Higher urinary output at 2.69, still high urinary calcium and severe hyperuricosuria He substantially reduced his Vit D and protein intake Discussion of addition of allopurinol 150 mg daily Discussion of follow-up with nephrology for further advice will try Allopurinol 200 mg daily and will follow up with Nephrology for further advise Takes a lot of supplements, and I suspect it may be part of his problem He may bring his supplements with him to the nephrology consultation. In addition, he notes at time recently when he had some difficulty with urination while in [place] but notes to fairly heavy alcohol consumption at that time. He needed to seek out medical facilities while on [place] and had a catheter placed with 1000 cc residual. We talked about follow-up in 3 to 4 months first with a nurse visit, UroCuff (full bladder), then with me 1 week later with a TRUS volume and cystoscopy. The patient notes having normal PSA values. will also follow up with Nephrology for further advice 07/07/2024 Nephrolithiasis, BPH with LUTs, Urinary Retention patient did not follow up from Oct 23, 2023 visit, we had discussed Urocuff, TRUS, Cysto, etc. We had also discussed follow up with Nephrology The patient had a CT scan done for other reasons at an outside facility that showed some thickening of the bladder. PVR 39 ml no blood urine, also tested at his office CT scan wtih thickeninh of bladder Takes a lot of supplements tried amoxicillin in [place]. will try tamsulosin 0.4mg po q hs follow up in 6-8 weeks To follow up 1st with nurse visit for both PSA LAB Draw and UROCUFF Procedure Note: Full bladder needed for the procedure in order to get accurate results. Then 7-[address] Moran to discuss results with TRUS volume study and Cystoscopy. kenia Not available 07/07/2024 16:12:55 08/12/2024 [id number] He was last seen by {{TOSHA Sidhu Dr., Dr., Dr.* Dr. Claudia Guerrero}} on {{Date 07/07/24#}}. He should return to clinic {{in* on}} {{October e March mber July* August}} 20{{ 24#}} to discuss Urocuff results with {{TOSHA Sidhu Dr., Dr., Dr.* Dr. Claudia Guerrero}} . He {{does* does not}} have a follow up scheduled. Visit Completed by: {{Yamile Smith i,RN#}} [email or web address] Not available 08/12/2024 16:30:24 08/21/2024 [id number] Discussion of BP H and treatment options I heather him a diagram showing him the anatomy of the prostate with relation to the urethra and the bladder. We talked about the connection between an enlarged prostate and the PSA exam. I then went over all of the treatment options for BPH with obstruction. We talked about medications, such as tamsulosin and finasteride, we also went over the side effects, risks and benefits. We talked about the size of the prostate and I heather him a diagram of the anatomy along with the treatment options (see scanned sheet). We talked about the necessity for procedure if there is recurrent infection, incomplete emptying, hydronephrosis, etc. We also talked about the various procedural options including simple prostatectomy, TURP procedure, greenlight laser or HOLEP procedure, Rezum, Urolift, Aquablation, PAE. iTIND, Optilume BPH. We talked about the complicated nature of symptoms and that patients with BPH can have both obstructive and irritative symptoms. I explained that not all of the symptoms can be resolved with treatment. I wanted to make sure that the patient had realistic about the various treatment options including the possibility of seeking a second opinion. kenia Not available 08/21/2024 08:21:45 Nephrolithiasis, BPH with Obstruction Review and interpretation of 24-hour urine from 08/28/2023: Urine volume 1.8 L per 24 hours Discussion of importance of hydration, 80 to 90 ounces of water per day Urinary calcium high at 430 with normal being less than 250 mg over 24 hours Discussion of lower calcium diet Very high amounts of uric acid seen in the urine at 1062,normal < 800 Sodium continues at high normal levels. November 2022 with parathyroid hormone intact at 31.3, normal calcium 9.5 Review of previous 24-hour urine studies from 12/14/2022 Higher urinary output at 2.69, still high urinary calcium and severe hyperuricosuria He substantially reduced his Vit D and protein intake Discussion of addition of allopurinol 150 mg daily Discussion of follow-up with nephrology for further advice will try Allopurinol 200 mg daily and will follow up with Nephrology for further advise Takes a lot of supplements, and I suspect it may be part of his problem He may bring his supplements with him to the nephrology consultation. In addition, he notes at time recently when he had some difficulty with urination while in [place] but notes to fairly heavy alcohol consumption at that time. He needed to seek out medical facilities while on [place] and had a catheter placed with 1000 cc residual. We talked about follow-up in 3 to 4 months first with a nurse visit, UroCuff (full bladder), then with me 1 week later with a TRUS volume and cystoscopy. The patient notes having normal PSA values. will also follow up with Nephrology for further advice 07/07/2024 Nephrolithiasis, BPH with LUTs, Urinary Retention patient did not follow up from Oct 23, 2023 visit, we had discussed Urocuff, TRUS, Cysto, etc. We had also discussed follow up with Nephrology The patient had a CT scan done for other reasons at an outside facility that showed some thickening of the bladder. PVR 39 ml no blood urine, also tested at his office CT scan wtih thickening of bladder Takes a lot of supplements tried amoxicillin in [place]. will try tamsulosin 0.4mg po q hs Review of UroCuff from 08/12/2024 interpretation: Voided volume 298, postvoid residual 135, capacity 433 Qmax 14.4 mL/s, Q average 6.9 mL/s Miles noninvasive nomogram consistent with high-pressure/high flow voiding 08/21/2024 Nephrolithiasis, BPH with LUTs, Urinary Retention Review of UroCuff studies, incomplete emptying, high-pressure voiding Transrectal ultrasound volume study: 107 cm3 Cystoscopy: kissing lateral lobes, signs of long-term obstruction in the bladder, grade 1-2 trabeculation Patient has been on testosterone replacement for quite some time. As the possible relation between testosterone and prostatic enlargement Patient did not tolerate tamsulosin, did not like side effects Review of findings with patient, was placed on tamsulosin prior Discussion of treatment options including medications/combina tion therapy, procedural options We discussed PSA exams Please see diagram for further information will follow up in 6 months after trial of Finasteride 5mg, ua,pvr, TRUS volume [email or web address] Not available 08/21/2024 10:24:12 Reason for Referral None Reported. Results Created Date Observation Date Name Description Value Unit Range Abnormal Flag Note LastModifiedBy Organization Detail LastModifiedTime 08/28/2009/03/2023 LITHO LINK 24HR URINE PANEL cystine, urine, qualitative COMMEN T Test not perfo rmed. Previ ous test resul ts on file. Not Available [facility] ([facility]) [address] [facility], [place], [address], 09/03/2023 21:06:23 08/28/20 23 09/03/2023 LITHO LINK 24HR URINE PANEL urine volume (preserved) 1820 mL/24 _HR 500-40 00 Not Available [facility] ([facility]) [address] [place], [address], 09/03/2023 21:06:23 08/28/20 23 09/03/2023 LITHO LINK 24HR URINE PANEL calcium oxalate saturation 8.45 6.00-1 0.00 Not Available [facility] ([facility]) [address] [facility], [place], [address], 09/03/2023 21:06:23 08/28/20 23 09/03/2023 LITHO LINK 24HR URINE PANEL calcium, urine 430 mg/24 _HR <250 above high normal Not Available [facility] ([facility]) [address] [place], [address], 09/03/2023 21:06:23 08/28/20 23 09/03/2023 LITHO LINK 24HR URINE PANEL oxalate, urine 36 mg/24 _HR 20-40 Not Available [facility] ([facility]) [address] [place], [address], 09/03/2023 21:06:23 08/28/20 23 09/03/2023 LITHO LINK 24HR URINE PANEL citrate, urine 913 mg/24 _HR >450 Not Available [facility] ([facility]) [address] [place], [address], 09/03/2023 21:06:23 08/28/20 23 09/03/2023 LITHO LINK 24HR URINE PANEL calcium phosphate saturation 1.90 0.50-2 .00 Not Available [facility] ([facility]) [address] [facility], [place], [address], 09/03/2023 21:06:23 08/28/20 23 09/03/2023 LITHO LINK 24HR URINE PANEL pH, 24 HR, urine 5.856 5.800- 6.200 Not Available [facility] ([facility]) [address] [facility] [place], [address], 09/03/2023 21:06:23 08/28/20 23 09/03/2023 LITHO LINK 24HR URINE PANEL uric acid saturation 1.51 <1.00 above high normal Not Available [facility] ([facility]) [address] [place], [address], 09/03/2023 21:06:23 08/28/20 23 09/03/2023 LITHO LINK 24HR URINE PANEL uric acid, urine 1062 mg/24 _HR <800 above high normal Not Available [facility] ([facility]) [address] [facility], [place], [address], 09/03/2023 21:06:23 08/28/20 23 09/03/2023 LITHO LINK 24HR URINE PANEL sodium, urine 150 mmol/ 24_HR 50-150 Not Available [facility] ([facility]) [address] [place], [address], 09/03/2023 21:06:23 08/28/20 23 09/03/2023 LITHO LINK 24HR URINE PANEL potassium, urine 90 mmol/ 24_HR 20-100 Not Available [facility] ([facility]) [address] [place], [address], 09/03/2023 21:06:23 08/28/20 23 09/03/2023 LITHO LINK 24HR URINE PANEL magnesium, urine 214 mg/24 _HR 30-120 above high normal Not Available [facility] ([facility]) [address] [place], [address], 09/03/2023 21:06:23 08/28/20 23 09/03/2023 LITHO LINK 24HR URINE PANEL phosphorus, urine 1387 mg/24 _HR 600-12 00 above high normal Not Available [facility] ([facility]) [address] [facility], [place], [address], 09/03/2023 21:06:23 08/28/20 23 09/03/2023 LITHO LINK 24HR URINE PANEL ammonium, urine 51 mmol/ 24_HR 15-60 Not Available [facility] ([facility]) [address] [facility], [place], [address], 09/03/2023 21:06:23 08/28/20 23 09/03/2023 LITHO LINK 24HR URINE PANEL chloride, urine 179 mmol/ 24_HR 70-250 Not Available [facility] ([facility]) [address] [place], [address], 09/03/2023 21:06:23 08/28/20 23 09/03/2023 LITHO LINK 24HR URINE PANEL sulfate, urine 60 mEq/2 4_HR 20-80 Not Available [facility] ([facility]) [address] [place], [address], 09/03/2023 21:06:23 08/28/20 23 09/03/2023 LITHO LINK 24HR URINE PANEL urea nitrogen, urine 14.40 g/24_ HR 6.00-1 4.00 above high normal Not Available [facility] ([facility]) [address] [place], [address], 09/03/2023 21:06:23 08/28/20 23 09/03/2023 LITHO LINK 24HR URINE PANEL protein catabolic rate 1.2 g/kg/ 24_HR 0.8-1. 4 Not Available [facility] ([facility]) [address] [place], [address], 09/03/2023 21:06:23 08/28/20 23 09/03/2023 LITHO LINK 24HR URINE PANEL creatinine, urine 2174 mg/24 _HR not applic . Note the exces sive varia tion in creat inine excre tion, sugge sting a discr epanc y in the colle ction proce ss. The urine creat inine resul t was verif ied by bola suggs edwina sis. Not Available [facility] ([facility]) [address] [facility], [place], [address], 09/03/2023 21:06:23 08/28/20 23 09/03/2023 LITHO LINK 24HR URINE PANEL creatinine/k g body weight 25.0 mg/24 _HR/k g 11.9-2 4.4 above high normal Not Available [facility] ([facility]) [address] [place], [address], 09/03/2023 21:06:23 08/28/20 23 09/03/2023 LITHO LINK 24HR URINE PANEL calcium/kg body weight 4.9 mg/24 _HR/k g <4.0 above high normal Not Available [facility] ([facility]) [address] [place], [address], 09/03/2023 21:06:23 08/28/20 23 09/03/2023 LITHO LINK 24HR URINE PANEL calcium/crea tinine ratio 198 mg/g_ creat 34-196 above high normal Not Available [facility] ([facility]) [address] [place], [address], 09/03/2023 21:06:23 08/28/20 23 09/03/2023 LITHO LINK 24HR URINE PANEL comment Note Not Available [facility] ([facility]) [address] [place], [address], 09/03/2023 21:06:23 07/07/20 24 07/07/2024 bladd er scan (PROC ) Volume (in mL) 39 Not Available [facility] [address], [place], [address], Ph 07/07/2024 15:55:16 08/12/20 24 08/12/2024 bladd er scan (PROC ) Volume (in mL) 135 Not Available [facility] [address], [place], [address], Ph 08/12/2024 16:24:58 07/07/20 24 06/26/2024 CT, abdom en + pelvi s, w/ contr ast No observ ation record ed. kenia [facility] [place] [address], [place], [address], 07/07/2024 17:57:29 07/07/20 24 06/26/2024 CT, abdom en + pelvi s, w/o contr ast No observ ation record ed. [email or web address] Not Available 07/07 14:12:25 Result Notes None recorded. Problems Name Problem SNOMED Code Status Onset Date Resolution Date Notes Provider Name and Address Organization Details Recorded Time Kidney stone 23817688 Active 2022 Alcira rubin [facility] 4 13:54:21 Benign prostatic hyperplasia with outflow obstruction 215097024 Active 2023 Alcira rubin [facility] 4 13:54:21 Problem Notes None recorded. Procedures Surgical History Date Name Laterality Status Provider Name and Address Organization Details Recorded Time 4 Cystoscopy- male completed Blessing Moran MD [address] [place] [address],[address], [address], [facility] 08/21/2024 10:08:46 4 COMPLEX VISIT completed Blessing Moran MD [address] [place] [address],[address], [address], [facility] 08/21/2024 08:17:13 4 TRUS- Volume size only completed Blessing Moran MD [address] [place] [address],[address], [place], [address], [facility] 08/21/2024 10:08:42 4 [place] - UroCuff completed Sherin García [facility] 08/12/2024 16:27:32 4 COMPLEX VISIT completed Blessing Moran MD [address] [place] [address],[address], [place], [address], [facility] 07/07/2024 16:09:50 4 COMPLEX VISIT completed Blessing Moran MD [address] [place] [address],[address], [address], [facility] 10/23/2023 17:30:53 2 Colonoscopy completed Blessing Moran MD [address] [place] [address],[address], [address], [facility] 12/26/2022 14:32:54 Imaging Results Imaging Date Name Status LastModified by Organiz ation Details LastModified Time 06/26/2024 CT, abdomen + pelvis, w/ contrast completed kenia [facility] [place] [address] [facility] [address], [place], [address], 07/07/2024 17:57:29 06/26/2024 CT, abdomen + pelvis, w/o contrast completed [email or web address] Information not available 07/07/2024 14:12:25 Procedure Notes None recorded. Medical Equipment None Reported. Allergies No known drug allergies Medications Name Sig Start Date Stop Date Status Note LastModified by Organization Details LastModified Time cyclobenzap rine 10 mg tablet TAKE ONE TABLET BY MOUTH AT BEDTIME for 15 days* 07/07 completed Not Available Not Available Not Available ivermectin 3 mg tablet TAKE 6 TABLETS BY MOUTH ALL AT ONCE FOR 5 DAYS WITH COVID SYMPTOMS 10/17 completed Not Available Not Available Not Available hydrocodone 5 mg-acetamin ophen 325 mg tablet TAKE ONE TABLET BY MOUTH EVERY FOUR TO SIX HOURS NEEDED FOR PAIN* 07/07 completed Not Available Not Available Not Available prednisone 20 mg tablet TAKE 3 TABLETS BY MOUTH DAILY DAYS 1 TO 3, 2 TABS DAILY DAYS 4 TO 6 AND 1 TAB DAILY DAYS 7 TO 9, THEN STOP* 07/07 completed Not Available Not Available Not Available hydrocodone 10 mg-acetamin ophen 325 mg tablet TAKE ONE OR TWO TABLETS BY MOUTH EVERY SIX HOURS NEEDED FOR PAIN* 07/07 completed Not Available Not Available Not Available tamsulosin 0.4 mg capsule TAKE ONE CAPSULE BY MOUTH AT BEDTIME* active Not Available Not Available No t Available benzonatate 100 mg capsule TAKE ONE CAPSULE BY MOUTH THREE TIMES DAILY NEEDED* 10/23 completed Not Available Not Available Not Available cephalexin 500 mg capsule Take 1 tablet by mouth post Cystoscop y 2023 active athul l, [employer] Not Available Not Available Not Available tobramycin 0.3 % eye drops instill 2 drops into the affected eyes every 4 hours for 5 - 7 days. If you symptoms do not improve or worsen, go to ER immediate ly.* 10/23 completed Not Available Not Available Not Available fluticasone propionate 50 mcg/actuati on nasal spray,suspe nsion INHALE 1 SPRAY INTRANASA LLY 2 TIMES DAILY FOR 7 DAYS.* 10/23 completed Not Available Not Available Not Available finasteride 5 mg tablet Take 1 tablet every day by oral route. 2023 active Not Available Not Available Not Avai lable allopurinol 200 mg tablet Take 1 tablet every day by oral route. 07/07 completed Not Available Not Available Not Available Vitals Date Recorded Body height Body mass index (BMI) Body weight Provider Name and Address Organization Details Last Updated DateTime 12/26/2022 193.04 cm 23.1 kg/m2 68833.55 g Blessing Moran MD [address] [place] [address],[address], [address], [place] [facility] 12/26/2022 14:32:26 Date Recorded Body height Body mass index (BMI) Body weight Provider Name and Address Organization Details Last Updated DateTime 10/23/2023 193.04 cm 23.1 kg/m2 57139.55 g Blessing Moran MD [address] [place] [address],[address] [place], [address] 10/23/2023 15:23:35 Date Recorded Body height Body mass index (BMI) Body weight Provider Name and Address Organization Details Last Updated DateTime 07/07/2024 193.04 cm 23.7 kg/m2 56865.51 g Blessing Moran MD [address] [facility] [address], [place], [address] 07/07/2024 15:52:20 Date Recorded Body height Provider Name an d Address Organization Details Last Updated DateTime 08/12/2024 193.04 cm Sherin Ricky [facility] 16:28:03 Social History Question Answer Notes LastModified by Organizat ion Details LastModified Time Tobacco Smoking Status Never Smoker Leslie Javi rubin [facility] 10/17/2022 14:29:42 What Is Your Level Of Alcohol Consumption? Occasional Information not available 10/23/2023 What Is Your Level Of Caffeine Consumption? Moderate Information not available 10/23/2023 What Was The Date Of Your Most Recent Tobacco Screening? 07/07/2024 Information not available 07/07/2024 How Many Days In The Past Year Have You Consumed 5 Or More Drinks? 0 [email or web address] Information not available 09/04/2024 Sex: Unknown Functional Status None recorded. Mental Status None recorded. Family History Nothing Reported Notes:hypertension- father Medical History Condition Response Other N High Blood Pressure N Kidney Stones Y Depression N Lung Disease N GERD/Acid Reflux N Sexually Transmitted Infection N Cancer N High Cholesterol N Diabetes N Bleeding Disorder N Heart Disease N Immunizations Vaccine Type Date Status Note Provider Nam e and Address Organization Details Recorded Time measles 1 completed Dayanara rubin [facility] 08/10/2023 17:54:43 polio, unspecified formulation 5 completed Dayanara rubin [facility] 08/10/2023 17:54:43 Td (adult), 2 Lf tetanus toxoid, preservative free, adsorbed 1 completed Dayanara rubin [facility] 08/10/2023 17:54:43 Past Encounters Encounter ID Performer Location Encounter Start Date Encounter Closed Date Diagnosis/Indication Diagnosis SNOMED-CT Code Diagnosis ICD10 Code Diagnosis Note [id number] Leslie Caldwell _[facility] [address] [address],[address] [address] 10/17/2022 14:21:00 10/27/2022 08:35:50 Kidney stone 32955987 N20.0 [id number] [facility] [address] [address],[address] [address] 12/26/2022 14:29:07 01/02/2023 19:48:39 Kidney stone 37804765 N20.0 [id number] [facility] [address] [address],[address] [address] 10/23/2023 15:18:05 11/01/2023 17:14:42 Kidney stone 85627795 N20.0 [id number] MD [facility]AR [facility] [address] [place] [address] [place] [address] 07/07/2024 15:43:33 07/09/2024 08:56:11 Kidney stone 83500285 N20.0 Benign pro static hyperplasia with outflow obstruction [id number] N40.1 [id number] Sherin García [facility] [address],[place] [address] [place] [address] 08/12/2024 16:02:18 08/12/2024 16:04:33 Lower urinary tract symptoms due to benign prostatic hypertrophy [id number] 9101 N40.1 [id number] Blessing Moran MD [facility] [address],[place] [address] [place] [address] 08/21/2024 09:49:36 08/25/2024 13:11:05 Benign prostatic hyperplasia with outflow obstruction 754243251 N40.1 Kidney stone 17826564 N2 0.0 Health Concerns Section Related Observation LastModified by Organization Detai ls LastModified Time None Recorded Concern Status LastModified by Organization Details LastModified Time None Recorded Advance Directives Directive None Recorded Payers Encounter Date Sequence Insurance Name Policy Number Policy Mclaughlin Covered Member ID Mclaughlin Member ID Guarantor Name 12/26/2022 1 [facility] [place] [id number] [place]дрей [place] 10/23/2023 1 [employer] [facility] [place]bean [place] [id number] Андрей Nj 07/07/2024 1 [employer] [facility] Андрей Clem [id number] Андрей Trevizobett 08/12/2024 1 [employer] [facility] [place] [id number] Андрей Trevizobett 08/21/2024 1 [employer] [facility] [place]bean [place] [id number] Андрей Nj Notes Date Note Type Note Provider Name and Address Organization Details Recorded Time 12/26/2022 text/html Has been doing well recently no major changes no fevers, chills, night sweats review of past medical history discussed medications and general health. Feeling well since last episode of kidney stones. No flank pain or hematuria. Blessing Moran MD [address] [place] [address],[address], [address], [facility] 12/26/2022 14:54:24 10/23/2023 text/html Has been doing well recently no major changes no fevers, chills, night sweats review of past medical history discussed medications and general health Blessing Moran MD [address] [place] [address],[address], [address], [facility] 10/23/2023 17:32:53 07/07/2024 text/html Has been doing well recently no major changes no fevers, chills, night sweats review of past medical history discussed medications and general health Blessing Moran MD [address] [place] [address],[address], [address], [facility] 07/07/2024 16:13:12 08/21/2024 text/html Has been doing well recently no major changes no fevers, chills, night sweats review of past medical history discussed medications and general health Blessing Moran MD [address] [facility] [address], [place], [address], [facility] 08/21/2024 10:26:02
--- NOTE | 2025-01-09 18:14 | ED_ITS ---
HPI - Wound/Laceration General Time Seen by Provider: 18:14 Date Seen: 01/09/25 Chief Complaint: Laceration/Wound Stated Complaint: Dropped knife on left foot, bleeding Time Seen by Provider: 01/09/25 18:08 Source: patient and RN notes reviewed Mode of arrival: ambulatory Limitations: no limitations History of Present Illness HPI narrative: This 54-year-old male was cutting a hot dog von when he accidentally dropped a new serrated knife on the top of his left foot. This caused a laceration, the had significant bleeding. Did get the bleeding controlled with pressure. He last had a tetanus in 1990, he declines updating tetanus. Did review with him that it does not half to be a dirty environment in order to get tetanus, it certainly can happen with open wounds, certainly dirty environment is more problematic. He does decline tetanus vaccination. Related Data Previous Rx's ?Medication ?Instructions ?Recorded cephalexin 500 mg tablet 500 mg PO TID #15 tabs 01/09/25 Allergies Allergy/AdvReac Type Severity Reaction Status Date / Time No Known Drug Allergies Allergy Verified 11/16/23 12:21 Review of Systems Narrative: As per HPI. PFSH PFS Medical History Hernia ?K46.9 - Unspecified abdominal hernia without obstruction or gangrene (ICD- 10) Kidney stones ?N20.0 - Calculus of kidney (ICD-10) Surgical History Status post ORIF of fracture of ankle ?Z98.890 - Other specified postprocedural states (ICD-10) ?Z87.81 - Personal history of (healed) traumatic fracture (ICD-10) History of repair of anterior cruciate ligament of left knee ?Z98.890 - Other specified postprocedural states (ICD-10) History of arthroscopy of right shoulder ?Z98.890 - Other specified postprocedural states (ICD-10) History of bilateral inguinal hernia repair ?Z98.890 - Other specified postprocedural states (ICD-10) ?Z87.19 - Personal history of other diseases of the digestive system (ICD-10) History of umbilical hernia repair ?Z98.890 - Other specified postprocedural states (ICD-10) ?Z87.19 - Personal history of other diseases of the digestive system (ICD-10) History of vasectomy ?Z98.52 - Vasectomy status (ICD-10) History of arthrodesis ?Z98.1 - Arthrodesis status (ICD-10) Social History Smoking Status: Never smoker Do you use any of these nicotine containing products: None Second hand tobacco smoke exposure: Yes How often do you have a drink containing alcohol: never How often do you have six or more drinks on one occasion: Never AUDIT-C Alcohol total score: 0 Non-prescribed substance use: denies use Exam 2 Const: Vital Signs, click to edit/add: Vital Signs - 24 hr 01/09/25 18:09 Temperature 97.5 F L Pulse Rate [Pulse Oximeter] 64 Respiratory Rate 16 Blood Pressure [Ri ght Upper Arm] 134/88 Pulse Oximetry 98 Oxygen Delivery Me thod Room Air This patient is ambulatory into the ED of his own accord. He has some blood- soaked bandaging around his foot. This was removed. He has about a 2.5 cm linear laceration situated obliquely over the base of his toe along the metatarsal phalangeal joint, 1st. He has preserved strength testing of dorsiflexion and extension of this toe. There was no loss any motor within this toe. Distal neurovascular is intact. There is some mild bleeding from the wo und but nothing suggestive of any arterial active bleeding. Do see some shiny tissue and loss of continuity of this medially along the 1st metatarsal phalangeal joint space. Can feel bone in this area using the pickups. No observed foreign body. Documenting provider has reviewed patient's vital signs: yes Course Reevaluation(s) Time of Reevaluation #1: 18:29 Reevaluation #1: Have spoken with Dr. Levy, given that patient has preserved strength testing, he feels that closure is fine. We did discuss his recommendations for immobilization with a cam walker, crutches to allow this toe to completely heal given the depth and on some of the aponeurosis certainly seemed to be involved around this joint space. He did recommend closing some of the deep side with some Vicryl and closing the skin. Patient should likely be on a cam walker and crutches to prevent loading of this tendon and toe for about 2 weeks. 7:41 p.m.: Did speak with him again, reviewed that the a extensor tendon is completely intact, this does look to go into the joint space on the medial portion of the 1st metatarsophalangeal joint. Again, deep tissue repair with Vicryl, superficial skin closure. Patient will not need a cam walker and crutches if it is just the lesser injury I am describing. He would recommend a postop shoe just to give the joint some time to heal, probably 7-10 days. Time of Reevaluation #2: 18:53 Reevaluation #2: For re-evaluation after irrigation reveals the extensor tendon is intact in the toe. The laceration is quite deep though and looks like it might be all the way down to the bone and have loss of continuity of the joint space. I can palpate bone with my forceps, do think I can see down to the joint. We are going to try an x-ray just to see if we can see the extent of the depth and where the laceration completely overlies on imaging. Time of Reevaluation #3: 20:14 Reevaluation #3: Patient is consented on closure. He still has good anesthesia of the wound. I did irrigate with close to another 100 mL saline, sterile. 4-0 Vicryl was used for deep closure, I was able to reapproximate some of the joint capsule and deep tissues. The superficial wound was closed with 3-0 Ethilon, 7 simple interrupted sutures placed with observation of hemostasis. Patient tolerated the procedure well. Vital Signs Vital signs: Initial Vital Signs Temperature 97.5 F L 01/09/25 18:09 Temperature Source Temporal Artery Scan 01/09/25 18:09 Pulse Rate 64 01/09/25 18:09 Respiratory Rate 16 01/09/25 18:09 Blood Pressure 134/88 01/09/25 18:09 Blood Pressure Mean 103 01/09/25 18:09 Blood Pressure Position Sitting 01/09/25 18:09 Pulse Oximetry 98 01/09/25 18:09 Oxygen Delivery Method Room Air 01/09/25 18:09 Vital Signs Temperature 97.5 F L 01/09/25 18:09 Pulse Rate 64 01/09/25 18:09 Respiratory Rate 16 01/09/25 18:09 Blood Pressure 134/88 01/09/25 18:09 Pulse Oximetry 98 01/09/25 18:09 Oxygen Delivery Method Room Air 01/09/25 18:09 Temperature 97.5 F L 01/09/25 18:09 Pulse Rate 64 01/09/25 18:09 Respiratory Rate 16 01/09/25 18:09 Blood Pressure 134/88 01/09/25 18:09 Pulse Oximetry 98 01/09/25 18:09 Oxygen Delivery Method Room Air 01/09/25 18:09 MDM - Wound/Laceration Imaging Data XR left great toe: Attestation: I have reviewed the pertinent imaging results. Radiologist's impression: Patient: ANITA MARTIN Facility:?[facility] Patient ID:?[id number] Site Patient ID:?[id number]. Site :?[id number] Study:?XRay-Extremity Left GREAT TOE 3 VIEW-01/09/2025 7:38:11 PM Ordering Physician:?Loren Cifuentes Final Report: INDICATION: Laceration/trauma, dropped knife on left big toe. TECHNIQUE: Left foot 1st digit, 3 view. COMPARISON: None. FINDINGS: Exam limited by overlying fabric material. No acute fracture or dislocation. Joint spaces are preserved. There is minimal soft tissue swelling and irregularity adjacent to the 1st MTP joint likely related to laceration. No radiopaque foreign body. IMPRESSION: Minimal soft tissue swelling and irregularity adjacent to the 1st MTP joint likely related to laceration. Dictated by Margaret Edwards MD @ 01/09/2025 7:46:23 PM (Electronic Signature) Discharge Plan Discharge Clinical Impression: Foot laceration Qualifiers: Encounter type: initial encounter Laterality: left Qualified Code(s): S91.312A - Laceration without foreign body, left foot, initial encounter Patient Disposition: Home, Self-Care Condition: Stable Instructions: Laceration (ED) Additional Instructions: Use postop shoe for ambulation the next 7-10 days. Recommend contacting [facility] to see computer methods analyst Dr. Levy in followup next week. May shower, use bandages in bacitracin to wound while in shoes or up and about to h elp keep this wound clean and dry. If there is concern for infection please seek re-evaluation. We will be prescribing you antibiotics to take, please start those in the morning. Fine to ice and elevate this to help decrease any pain or swelling. Certainly fine to use Tylenol and ibuprofen per bottle directions if needed for pain control. Prescriptions: New cephalexin 500 mg tablet 500 mg PO TID Qty: 15 0RF Follow Up/Referrals: Juaquin Bryson MD [Primary Care Provider] - Stand Alone Forms: Lesson[employer] Info Instructions
--- NOTE | 2025-01-09 18:52 | CRLHL7_ITS ---
For Patients: As a result of the Cures Act, medical imaging exams and procedure reports are released immediately into your electronic medical record. You may view this report before your referring provider. If you have questions, please contact your health care provider. INDICATION: Laceration/trauma, dropped knife on left big toe. TECHNIQUE: Left foot 1st digit, 3 view. COMPARISON: None. FINDINGS: Exam limited by overlying fabric material. No acute fracture or dislocation. Joint spaces are preserved. There is minimal soft tissue swelling and irregularity adjacent to the 1st MTP joint likely related to laceration. No radiopaque foreign body. IMPRESSION: Minimal soft tissue swelling and irregularity adjacent to the 1st MTP joint likely related to laceration. Dictated by Margaret Edwards MD @ 01/09/2025 7:46:23 PM (Electronically Signed)
--- OUTSIDE RECORDS SUMMARY | 2025-01-09 19:09 | XMS_ITS | Encounter Summary ---
Author Organization [facility] Address [address] [place] [address] Care Team Providers Care Coffee Taster Name Role Phone Unassigned, Provider Primary Care Provider Unava ilable Encounter Details Date Type Department Care Team (Late st Contact Info) Description 08/25/2024 Notes/Orders [facility] [address] [place] [address] Luis Cartwright MD [address] [place] [address] Social History Tobacco Use Types Packs/Day Years [...] on filedocumented in this encounter Care Teams Coffee Taster Relationship Specialty Start Date End Date Unassigned, Provider [address] [place] [address] PCP - General 09/01/00 documented as of this encounter
--- OUTSIDE RECORDS SUMMARY | 2025-01-09 19:09 | XMS_ITS | Clinical Summary ---
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
--- OUTSIDE RECORDS SUMMARY | 2025-01-09 19:09 | XMS_ITS | Clinical Summary ---
Author Organization [facility] Address [address], [place] [address] Care Team Providers Care Public Speaking Coach Name Role Phone Unassigned, Provider Primary Care Provider Unava ilable Source Comments You are receiving this document as you are listed as the primary care provider,follow-up provider, or the patient has been referred to you for consultation.This is in compliance with the Medicare and[facility] EHR Incentive Program,which states Providers who transition their patient to another setting of careor provider of care or refers their patient to another provider of care shouldprovide summary care record for each transition of care or referral. [facility] Allergies No known active allergies Medications cholecalciferol [...] Comments Blood Pressure 135/86 10/22/2021 3:29 PM ENVIRONMENTAL PROJECTS ADVISOR Pulse 62 10/22/2021 3:29 PM ENVIRONMENTAL PROJECTS ADVISOR Temperature 36.6 C (97.9 F) 10/22/2021 3:29 PM ENVIRONMENTAL PROJECTS ADVISOR Respiratory Rate 18 10/22/2021 3:29 PM ENVIRONMENTAL PROJECTS ADVISOR Oxygen Saturation 100% 10/22/2021 3:29 PM ENVIRONMENTAL PROJECTS ADVISOR Inhaled Oxygen Concentration - - Weight 90.7 kg (200 lb) 09/22/2019 12:50 PM ENVIRONMENTAL PROJECTS ADVISOR Height 198.1 cm (6' 6) 09/22/2019 12:50 PM ENVIRONMENTAL PROJECTS ADVISOR Body Mass Index 23.11 09/22/2019 12:50 PM ENVIRONMENTAL PROJECTS ADVISOR Plan of Treatment Health Maintenance Due Date [...] this topic Medical Devices Implanted Type Area Supply Person Device Identifier Shelf Expiration Date Model / Serial / Lot Sut [place] Corkscrew 5.5mm W2# - [id number] Implanted:Qty: 1 on 06/30/2019 by Luis Cartwright MD at [facility] Left: SHOULDER [employer] 02/28/2021 [id number] T / 0 / [id number] Sut [place] Corkscrew 5.5mm W2# - [id number] Implanted:Qty: 1 on 06/30/2019 by Luis Cartwright MD at [facility] Left: SHOULDER [employer] 11/28/2020 [id number] T / 0 / [id number] [place] Bio Swivel Lk 5.5x19.1 - [id number] Implanted:Qty: 1 on 06/30/2019 by Luis Cartwright MD at [facility] Left: SHOULDER [employer] 12/29/2020 [id number] C / 0 / [id number] [facility] Advance Directives * Full Code (Latest Code Status on File) Date Activated Date Inactivated Comments 09/22/2019 2:18 PM 09/22/2019 5:52 PM Full code in effect for 30 days * Full Code Date Activated Date Inactivated Comments 03/07/2017 12:31 PM 03/07/2017 5:31 PM Full code in effect for 30 days Care Teams Public Speaking Coach Relationship Specialty Start Date End Date Unassigned, Provider [address] [place] [address] PCP - General 09/01/00
--- OUTSIDE RECORDS SUMMARY | 2025-01-09 19:09 | XMS_ITS | Clinical Summary ---
Author Organization [facility] Address [address] [place] [address]. 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 Gender Identity Not on file Sexual Orientation Not on file Last Filed Vital Signs Vital Sign Reading Time Taken Comments Blood Pressure 118/62 11/12/2018 1:53 PM DIRECTOR OF LEADERSHIP DEVELOPMENT Pulse 76 11/12/2018 1:53 PM DIRECTOR OF LEADERSHIP DEVELOPMENT Temperature 36.8 C (98.3 F) 10/24/2018 10:52 AM DIRECTOR OF LEADERSHIP DEVELOPMENT Respiratory Rate 26 10/24/2018 10:52 AM DIRECTOR OF LEADERSHIP DEVELOPMENT Oxygen Saturation 99% 10/24/2018 12:45 PM DIRECTOR OF LEADERSHIP DEVELOPMENT Inhaled Oxygen Concentration - - Weight 90.7 kg (200 lb) 11/12/2018 1:53 PM DIRECTOR OF LEADERSHIP DEVELOPMENT Height 193 cm (6' 4) 11/12/2018 1:53 PM DIRECTOR OF LEADERSHIP DEVELOPMENT Body Mass Index 24.34 11/12/2018 1:53 PM DIRECTOR OF LEADERSHIP DEVELOPMENT Plan of Treatment Not on file Medical Devices Implanted Type Area Hydraulic Controls Technician Device Identifier Shelf Expiration Date Model / Serial / Lot Mesh Hernia Physio [id number] Oval [id number] Implanted:Qty: 1 on 07/12/2012 by Yoan Hamilton MD at [facility] Left: Groin 02/28/2014 [id number] / / [id number] Mesh Hernia Physio [id number] Oval [id number] Implanted:Qty: 1 on 07/12/2012 by Yoan Hamilton MD at [facility] Right: Groin 02/28/2014 [id number] / / [id number] Advance Directives For more information, please contact: [phone] Documents on File Type Date Recorded Patient Taker Out Expl anation Advance Directives and Living Will 07/23/2012 12:08 PM HEALTH CARE DIRECTIVE-10/23/2004 Advance Directives and Living Will 07/23/2012 12:08 PM VALIDATION OF AD-10/23/2004 * Full Code (Latest Code Status on File) Date Activated Date Inactivated Comments 03/01/2018 8:32 AM 10/24/2018 10:46 AM * Full Code Date Activated Date Inactivated Comments 02/28/2018 3:49 PM 03/01/2018 8:32 AM Care Teams Physical Therapy Assistant Relationship Specialty Start Date End Date VotelJuaquin: [phone] PCP - General 06/17/12
== END 2025-01-09 20:30 | disposition home or self-care (01) ==
PROVIDERS: Emergency Provider Family Medicine; PCP Family Medicine
DX: S91.312A Laceration without foreign body, left foot, initial encounter (principal); W26.0XXA Contact with knife, initial encounter
CPT/HCPCS: 12001; 73660; 99283